=== PATIENT | female | born 1965 | race Caucasian/White ===

== ENCOUNTER 2021-02-10 09:18 | Outpatient (REF) | payer OTHER, SELFPAY ==
--- NOTE | ~2021-02-10 | XR_ITS ---
EXAMINATION: XR CHEST CLINICAL INFORMATION: Mastodynia. COMPARISON: None TECHNIQUE: 2 views of the chest were obtained. FINDINGS: The lungs are in moderate inspiration with no acute pneumonic process seen. Heart size and pulmonary vascularity is normal. No gross bony abnormality seen. There are 2 metallic round foreign objects overlying each breast. In addition there are surgical kaitlin seen along the left posterior chest wall. XR/XR chest 2V IMPRESSION: No acute cardiopulmonary process seen
== END 2021-02-10 09:19 | disposition home or self-care (01) ==
LOC: HO.HMGCX 09:18
PROVIDERS: PCP Internal Medicine; Visit Provider Physician Assistant
DX: N64.4 Mastodynia (principal)
CPT/HCPCS: 71046

== ENCOUNTER 2021-12-07 17:21 | Emergency (ER) | payer OTHER, SELFPAY | END 2021-12-07 19:34 | disposition left against medical advice (07) | PROVIDERS: Emergency Provider Emergency Medicine; PCP Internal Medicine | DX: R10.31 Right lower quadrant pain (principal) ==